=== PATIENT | female | born 1955 | race Caucasian/White ===

== ENCOUNTER → 2023-04-25 | Outpatient (CLI) | payer MEDICARE, SELFPAY ==
--- OUTSIDE RECORDS SUMMARY | 2023-04-25 11:45 | XMS RPT_ITS | CCD ---
Author Name Unknown Address [address] [place] [address] Organization [facility] Care Team Providers Care Parking Assistant Name Role Phone BRIGITTE PALACIOS MD Primary Care Unavailable BRIGITTE PALACIOS MD Consulting Unavailable LATBRIGITTE SÁNCHEZ MD Attending Unavailable LATOUBRIGITTE Hi MD Admitting Unavailable PROVIDER, UNKNOWN Consulting Unavailable PROVIDER, UNKNOWN Consulting Unavailable PROVIDER, UNKNOWN Consulting Unavailable LATBRIGITTE SÁNCHEZ MD Primary Care Unavailable LATOUBRIGITTE Hi MD Consulting Unavailable LATOUBRIGITTE Hi MD Attending Unavailable LATOUBRIGITTE Hi MD Admitting Unavailable PROVIDER, UNKNOWN Consulting Unavailable PROVIDER, UNKNOWN Consulting Unavailable PROVIDER, UNKNOWN Consulting Unavailable BRIGITTE PALACIOS MD Primary Care Unavailable LATOUBRIGITTE Hi MD Attending Unavailable LATOUBRIGITTE Hi MD Admitting Unavailable LATBRIGITTE SÁNCHEZ MD Consulting Unavailable PROVIDER, UNKNOWN Consulting Unavailable PROVIDER, UNKNOWN Consulting Unavailable PROVIDER, UNKNOWN Consulting Unavailable CONLEY, FANI T Primary Care Unavailable CONLEY, FANI T Attending Unavailable LATBRIGITTE SÁNCHEZ MD Consulting Unavailable CONLEY, FANI T Admitting Unavailable PROVIDER, UNKNOWN Consulting Unavailable PROVIDER, UNKNOWN Consulting Unavailable PROVIDER, UNKNOWN Consulting Unavailable BRIGITTE PALACIOS MD Consulting Unavailable LATOUBRIGITTE Hi MD Attending Unavailable LATOUBRIGITTE Hi MD Admitting Unavailable LATOUBRIGITTE Hi MD Primary Care Unavailable PROVIDER, UNKNOWN Consulting Unavailable PROVIDER, UNKNOWN Consulting Unavailable PROVIDER, UNKNOWN Consulting Unavailable LATOUBRIGITTE Hi MD Consulting Unavailable LATOUBRIGITTE Hi MD Attending Unavailable LATOUBRIGITTE Hi MD Admitting Unavailable LATOUBRIGITTE Hi MD Primary Care Unavailable PROVIDER, UNKNOWN Consulting Unavailable PROVIDER, UNKNOWN Consulting Unavailable PROVIDER, UNKNOWN Consulting Unavailable LATBRIGITTE SÁNCHEZ MD Primary Care Unavailable LATBRIGITTE SÁNCHEZ MD Consulting Unavailable LATOUBRIGITTE Hi MD Attending Unavailable LATOUBRIGITTE Hi MD Admitting Unavailable PROVIDER, UNKNOWN Consulting Unavailable PROVIDER, UNKNOWN Consulting Unavailable PROVIDER, UNKNOWN Consulting Unavailable Allergies Allergy Classification Reported Allergen(s) Allergy Type Date of Onset Reaction(s) Facility (1 source) Amoxicillin Drug Allergy [facility] Repository Problems Problem Classification Problem Date Documented Da te Episodic/Chronic Deficiency and other anemia (1 source) Anemia, unspecified; Translations: [Anemia, unspecified] Onset: 12-27-2022 Episodic Disorders of lipid metabolism (1 source) Pure hypercholesterolem ia, unspecified; Translations: [Pure hypercholesterolem ia, unspecified] Onset: 12-13-2022 Chronic Fluid and electrolyte disorders (1 source) Hypokalemia; Translations: [Hypokalemia] Onset: 12-27-2022 Episodic Other bone disease and musculoskeletal deformities (1 source) Other specified disorders of bone density and structure, unspecified site; Translations: [Other specified disorders of bone density and structure, unspecified site] Onset: 12-13-2022 Episodic Other nutritional; endocrine; and metabolic disorders (1 source) Other disorders of plasma-protein metabolism, not elsewhere classified; Translations: [Other disorders of plasma-protein metabolism, not elsewhere classified] Onset: 12-27-2022 Chronic Other nutritional; endocrine; and metabolic disorders (1 source) Obesity, unspecified; Translations: [Obesity, unspecified] Onset: 12-13-2022 Chronic Thyroid disorders (4 sources) Hypothyroidism, unspecified; Translations: [Hypothyroidism, unspecified] Onset: 12-13-2022 Chronic Results Test Name Value Interpretation Reference Range Facil ity Encounters Encounter Date Encounter Type Care Provider Facility Start: 02-11-2023 ambulatory FANI CONLEY [facility] Start: 01-14-2023 End: 01-14-2023 ambulatory BRIGITTE CARTER [facility] Start: 01-08-2023 End: 01-08-2023 [facility] Start: 12-27-2022 End: 12-27-2022 ambulatory BRIGITTE CARTER [facility] Start: 12-13-2022 End: 12-13-2022 [facility] Start: 07-02-2022 End: 07-02-2022 ambulatory BRIGITTE CARTER [facility] Start: 06-04-2022 End: 06-04-2022 ambulatory BRIGITTE PALACIOS [facility] Payers Date Payer Category Payer Unknown [id number] 2.16.8 [id number] 1955 Unknown [id number] 2.16.8 [id number] 1955 Unknown [id number] 2.16.8 [id number] 1955 Unknown [id number] 2.16.8 [id number] 1955 Unknown [id number] 2.16.8 [id number] 1955 Unknown [id number] 2.16.84 [id number] 1955 Unknown [id number] 2.16.84 [id number] Medicare [id number] Summary Purpose Family History No Family History Records FoundNo Family History Records Found Advance Directives No Advanced Directives Records FoundNo Advanced Directives Records Found Additional Source Comments INFORMATION SOURCE (unrecogn ized section and content) DATE CREATED AUTHOR AUTHOR'S ORGANIZ ATION 02/12/2023 [facility] FOR RECORDS PERTAINING TO PATIENTS WHO ARE OR HAVE BEEN ENROLLED IN A CHEMICAL DEPENDENCY/SUBSTANCEABUSE PROGRAM, SOME INFORMATION MAY BE OMITTED. This clinical summary was aggregated from multiple sources. Caution should be exercised in using it in the provision of clinical care. This summary normalizes information from multiple sources, and as a consequence, information in this document may materially change the coding, format and clinical context of patient data. In addition, data may be omitted in some cases. CLINICAL DECISIONS SHOULD BE BASED ON THE PRIMARY CLINICAL RECORDS. [employer] [facility]. provides no warranty or guarantee of the accuracy or completeness of information in this document.
--- NOTE | 2023-04-28 11:11 | PFT ---
INTRODUCTION: The patient is a 67-year-old female who presents for pulmonary function studies secondary to a diagnosis of shortness of breath. Respiratory therapy reported good patient effort. Bronchodilators were used during testing. INTERPRETATION: Forced expiration spirometry demonstrated the presence of a mild large airways obstructive ventilatory defect. There was a significant response to aerosolized bronchodilators. Body plethysmography was performed and revealed an elevated TLC and RV, indicative of underlying hyperinflation and air trapping. Diffusing capacity by single breath CO was within normal limits. IMPRESSION: Partially reversible mild large airways obstructive ventilatory defect with associated hyperinflation and air trapping.
== END | disposition home or self-care (01) ==
PROVIDERS: PCP Internal Medicine; Referring Provider Internal Medicine Critical Care Medicine; Visit Provider Internal Medicine Critical Care Medicine
DX: R06.02 Shortness of breath (principal)
CPT/HCPCS: 94060; 94726; 94729

== ENCOUNTER → 2023-04-29 | Outpatient (CLI) | payer MEDICARE, SELFPAY ==
--- OUTSIDE RECORDS SUMMARY | 2023-04-29 12:17 | XMS RPT_ITS | CCD ---
Author Name Unknown Address [address] [place] [address] Organization [facility] Care Team Providers Care Handyman Name Role Phone BRIGITTE PALACIOS MD Primary [...] Hi MD Admitting Unavailable LATBRIGITTE SÁNCHEZ MD Primary Care Unavailable PROVIDER, UNKNOWN Consulting Unavailable PROVIDER, UNKNOWN Consulting Unavailable PROVIDER, UNKNOWN Consulting Unavailable LATBRIGITTE SÁNCHEZ MD Consulting Unavailable LATOUBRIGITTE Hi MD Attending Unavailable LATOUBRIGITTE Hi MD Admitting Unavailable LATOUBRGIITTE Hi MD Primary Care Unavailable PROVIDER, UNKNOWN [...] Reaction(s) Facility (1 source) Amoxicillin Drug Allergy [facility] Repository Problems Problem Classification Problem Date Documented [...] Provider Facility Start: 02-11-2023 ambulatory FANI CONLEY [facility] Start: 01-14-2023 End: 01-14-2023 ambulatory BRIGITTE CARTER [facility] Start: 01-08-2023 End: 01-08-2023 [facility] Start: 12-27-2022 End: 12-27-2022 ambulatory BRIGITTE CARTER [facility] Start: 12-13-2022 End: 12-13-2022 [facility] Start: 07-02-2022 End: 07-02-2022 ambulatory BRIGITTE CARTER [facility] Start: 06-04-2022 End: 06-04-2022 ambulatory BRIGITTE PALACIOS [facility] Payers Date Payer Category Payer Unknown [id number] 2.16.8 [id number] 1955 Unknown [id number] 2.16.8 [id number] 1955 Unknown [id number] 2.16.8 [id number] 1955 Unknown [id number] 2.16.8 [id number] 1955 Unknown [id number] 2.16.8 [id number] 1955 Unknown [id number] 2.16.84 [id number] 1955 Unknown [id number] 2.16.84 [id number] Medicare [id number] Summary Purpose Family History No Family History Records FoundNo Family History Records Found Advance Directives No Advanced Directives Records FoundNo Advanced Directives Records Found Additional Source Comments INFORMATION SOURCE (unrecogn ized section and content) DATE CREATED AUTHOR AUTHOR'S ORGANIZ ATION 02/12/2023 [facility] FOR RECORDS PERTAINING TO PATIENTS WHO ARE [...] BE BASED ON THE PRIMARY CLINICAL RECORDS. [employer] [facility]. provides no warranty or guarantee of the accuracy or completeness of information in this document.
[2023-04-29 12:44] VITALS: PULSE 101; PULSE 112; PULSE 118; PULSE 119; PULSE 124; PULSE 125; PULSE 126; O2SAT 97; O2SAT 98; O2SAT 99
--- NOTE | 2023-05-01 10:17 | PCM.PSN.6M ---
PSN 6 Minute Walk Test 6 Minute Walk Test 6 Minute Walk Test: 6 Minute Walk Test PSN:6-Minute Walk Test Start: 04/29/23 12:44 Freq: Status: Active Protocol: [id number].[id number] Document 04/29/23 12:44 [facility] (Rec: 04/29/23 12:47 [facility] [id number]) 6 Minute Walk Test Date Performed 04/29/23 Time Performed 12:30 Height 5 ft 7 in Weight: 184 lb Weight in Pounds 184.[address]: Jonny Ferugson Assistive device used: None Pre-test Oxygen Delivery Method Room Air Pulse Ox 98 Pulse Rate (60-100) 112 H Dyspnea Marlon Scale (0-10) 0 1st minute Oxygen Delivery Method Room Air Pulse Ox 97 Pulse Rate (60-100) 118 H Dyspnea Marlon Scale (0-10) 0 Number of Rests Taken 0 2nd minute Oxygen Delivery Method Room Air Pulse Ox 97 Pulse Rate (60-100) 119 H Dyspnea Marlon Scale (0-10) 1 Number of Rests Taken 1 Reported Symptoms Increased Work of Breathing 3rd minute Oxygen Delivery Method Room Air Pulse Ox 98 Pulse Rate (60-100) 124 H Dyspnea Marlon Scale (0-10) 2 Number of Rests Taken 0 Reported Symptoms Increased Work of Breathing 4th minute Oxygen Delivery Method Room Air Pulse Ox 98 Pulse Rate (60-100) 126 H Dyspnea Marlon Scale (0-10) 2 Number of Rests Taken 0 Reported Symptoms Increased Work of Breathing 5th minute Oxygen Delivery Method Room Air Pulse Ox 98 Pulse Rate (60-100) 125 H Dyspnea Marlon Scale (0-10) 3 Number of Rests Taken 0 Reported Symptoms Increased Work of Breathing 6th minute Oxygen Delivery Method Room Air Pulse Ox 98 Pulse Rate (60-100) 126 H Dyspnea Marlon Scale (0-10) 3 Number of Rests Taken 0 Reported Symptoms Increased Work of Breathing Post-test Oxygen Delivery Method Room Air Pulse Ox 99 Pulse Rate (60-100) 101 H Dyspnea Marlon Scale (0-10) 0 Full Laps Walked 15 Partial Lap, Number of Tiles Walked 7 Total Distance Walked (ft) 892 Interpretation Interpretation: The patient ambulated 892 feet over the course of 6 minutes beginning on room air without assistive devices. Pretesting oxygen saturation was noted to be 98% on room air. With ambulation, the cordell oxygen saturation was 97%. There was no significant exertional oxygen desaturation. Recommendations Recommendations: There is no indication for the use of supplemental oxygen at this time.
== END | disposition home or self-care (01) ==
LOC: PSN 12:08
PROVIDERS: PCP Internal Medicine; Referring Provider Internal Medicine Critical Care Medicine; Visit Provider Internal Medicine Critical Care Medicine
DX: R06.02 Shortness of breath (principal)
CPT/HCPCS: 94618